=== PATIENT | female | born 1945 | race Caucasian/White ===

== ENCOUNTER 2017-06-30 11:42 | Inpatient (IN) | payer MEDICAID ==
--- NOTE | 2017-06-30 11:59 | ED PDOC ---
Arrival/HPI - General Time Seen by Provider: 06/30/17 11:58 Historian: Patient - History of Present Illness Narrative History of Present Illness (Text): 06/30/17 11:59 A 71 year old female presents to the emergency department complaining of left knee pain after mechanical fall prior to arrival. Patient reports while walking she tripped on the curb and fell forward onto her left knee. Patient reports she is able to ambulate but with a small limp. Patient denies any loss of consciousness, head trauma, headache, dizziness, visual changes, neck pain, nausea, vomiting, abdominal pain, back pain, chest pain, shortness of breath, weakness, numbness or any other complaints. Time/Duration: Prior to Arrival Symptom Course: Unchanged Quality: Other Context: Walking Past Medical History - Provider Review Nursing Documentation Reviewed: Yes Family/Social History - Physician Review Nursing Documentation Reviewed: Yes Family/Social History: No Known Family HX Allergies/Home Meds Allergies/Adverse Reactions: Allergies No Known Allergies Allergy (Unverified 06/30/17 11:58) Home Medications: Home Meds Medication Instructions Recorded Confirmed No Known Home Med 06/30/17 06/30/17 Review of Systems - Physician Review All systems were reviewed & negative as marked: Yes - Review of Systems Eyes: absent: Vision Changes Respiratory: absent: SOB Cardiovascular: absent: Chest Pain Gastrointestinal: absent: Abdominal Pain, Nausea, Vomiting Musculoskeletal: Other (Left knee pain). absent: Back Pain, Neck Pain Neurological: absent: Headache, Dizziness, Focal Weakness Physical Exam Vital Signs Reviewed: Yes Vital Signs Temp Pulse Resp BP Pulse Ox 06/30/17 14:23 77 18 150/79 96 06/30/17 11:59 98.1 F 87 18 162/77 H 99 Temperature: Afebrile Blood Pressure: Hypertensive Pulse: Regular Respiratory Rate: Normal Appearance: Positive for: Well-Appearing, Non-Toxic, Comfortable Pain Distress: None Mental Status: Positive for: Alert and Oriented X 3 - Systems Exam Head: Present: Atraumatic, Normocephalic Pupils: Present: PERRL Extroacular Muscles: Present: EOMI Conjunctiva: Present: Normal Mouth: Present: Moist Mucous Membranes Pharnyx: No: ERYTHEMA, EXUDATE, TONSILS ENLARGED Neck: Present: Normal Range of Motion Respiratory/Chest: Present: Clear to Auscultation, Good Air Exchange. No: Respiratory Distress, Accessory Muscle Use Cardiovascular: Present: Regular Rate and Rhythm, Normal S1, S2. No: Murmurs Abdomen: Present: Normal Bowel Sounds. No: Tenderness, Distention, Peritoneal Signs Back: Present: Normal Inspection Upper Extremity: Present: Normal Inspection, Normal ROM, NORMAL PULSES. No: Cyanosis, Edema, Tenderness Lower Extremity: Present: NORMAL PULSES (Normal distal pulses), Normal ROM ( Left knee held in extension, pain with flexion), Swelling (Left knee swelling), Neurovascularly Intact, Other (Left knee ecchymosis). No: Edema, CALF TENDERNESS, Tenderness (bony hip tenderness), Deformity, Temperature Abnormalties Neurological: Present: GCS=15, CN II-XII Intact, Speech Normal, Gait Normal ( with limp) Skin: Present: Warm, Dry, Normal Color. No: Rashes Psychiatric: Present: Alert, Oriented x 3, Normal Insight, Normal Concentration Medical Decision Making ED Course and Treatment: 06/30/17 12:28 Impression: A 71 year old female with left knee pain after mechanical fall prior to arrival. Plan: -- Left knee xray -- Oxycodone -- Reassess and disposition Progress Notes: 06/30/17 13:05 Left knee xray read and interpreted by me, which shows patellar fracture with large separation. Case discussed with Dr. Ma, who states he will be on consult and requests pre-op clearance by medicine. Dr. Yuan unable to admit currently, will admit patient to hospitalist. - RAD Interpretation Radiology Orders: 06/30/17 11:58 KNEE LEFT 2 VIEWS (AP & LAT) [RAD] Stat - Medication Orders Current Medication Orders: Acetaminophen (Tylenol 325mg Tab) 650 mg PO Q6H PRN PRN Reason: Pain, moderate (4-7) Morphine Sulfate (Morphine) 2 mg IVP Q4H PRN PRN Reason: Pain, severe (8-10) Pantoprazole Sodium (Protonix Inj) 40 mg IVP DAILY ANTHONY Discontinued Medications Oxycodone/Acetaminophen (Percocet 5/325 Mg Tab) 1 tab PO STAT STA Stop: 06/30/17 12:01 Last Admin: 06/30/17 12:36 Dose: 1 tab - Scribe Statement The provider has reviewed the documentation as recorded by the Scribe Halima Salgado Provider Scribe Attestation: All medical record entries made by the Scribe were at my direction and personally dictated by me. I have reviewed the chart and agree that the record accurately reflects my personal performance of the history, physical exam, medical decision making, and the department course for this patient. I have also personally directed, reviewed, and agree with the discharge instructions and disposition. Disposition/Present on Arrival - Present on Arrival Any Indicators Present on Arrival: No - Disposition Have Diagnosis and Disposition been Completed?: Yes Diagnosis: Patellar fracture Disposition: HOSPITALIZED Disposition Time: 13:05 Patient Plan: Admission Condition: FAIR
[2017-06-30] MEDS ORDERED: Oxycodone/Acetaminophen 5/325 mg Tab PO STA (12:00)
--- NOTE | 2017-06-30 15:47 | RAD ---
PROCEDURE: Left Knee Radiographs. HISTORY: Pain. COMPARISON: None. FINDINGS: BONES: A midpole patellar fracture with 1.6 cm operation of the fractured ends proximal patellar fracture an old unopposed by the quadriceps tendon. JOINTS: Mild osteoarthritis. JOINT EFFUSION: Present OTHER FINDINGS: Marked prepatellar soft tissue swelling IMPRESSION: Midpole patellar fracture 1.6 cm separation of the fracture fragments
--- NOTE | 2017-06-30 16:52 | CARD ---
APPROVED REPORT EXAM: Two-dimensional and M-mode echocardiogram with Doppler and color Doppler. INDICATION SURGICAL CLEARANCE 2D DIMENSIONS Left Atrium (2D)4.0 (1.6-4.0cm)IVSd1.2 (0.7-1.1cm) LVDd4.1 (3.9-5.9cm)PWd1.2 (0.7-1.1cm) LVDs2.5 (2.5-4.0cm)FS (%) 38.8 % LVEF (%)69.7 (>50%) M-Mode DIMENSIONS Aortic Root2.60 (2.2-3.7cm)Aortic Cusp Exc.1.60 (1.5-2.0cm) Aortic Valve AoV Peak Odenmqhb845.0cm/Cathleen Peak GR.9mmHg Mitral Valve MV E Lqaliypi15.6cm/sMV A Qtpgujka55.8cm/sE/A ratio0.9 TDI Lateral E' Peak V9.16cm/sMedial E' Peak V5.75cm/sE/Lateral E'7.8 E/Medial E'12.5 Pulmonary Valve PV Peak Pbauqfai60.0cm/sPV Peak Grad.2mmHg Tricuspid Valve TR Peak Voqhawuh568wz/sRAP KANOKZIJ45cfRkJE Peak Gr.31mmHg [id number] LEFT VENTRICLE The left ventricle is normal size. There is mild concentric left ventricular hypertrophy. The left ventricular function is normal. The left ventricular ejection fraction is within the normal range. There is normal LV segmental wall motion. Transmitral Doppler flow pattern is Grade I-abnormal relaxation pattern. RIGHT VENTRICLE The right ventricle is normal size. There is normal right ventricular wall thickness. The right ventricular systolic function is normal. ATRIA The left atrium is borderline dilated. The right atrium size is normal. AORTIC VALVE The aortic valve is normal in structure. No aortic regurgitation is present. MITRAL VALVE The mitral valve is mildly thickened. Mitral regurgitation is trace. TRICUSPID VALVE There is mild pulmonary hypertension. PULMONIC VALVE There is trace pulmonic valvular regurgitation. GREAT VESSELS The aortic root is normal in size. The IVC is normal in size and collapses >50% with inspiration. PERICARDIAL EFFUSION There is a trace loculated anterior pericardial effusion. <Conclusion> The left ventricle is normal size. There is mild concentric left ventricular hypertrophy. The left ventricular function is normal. The left ventricular ejection fraction is within the normal range. There is normal LV segmental wall motion. Transmitral Doppler flow pattern is Grade I-abnormal relaxation pattern. There is mild pulmonary hypertension.
[2017-06-30 18:09] LABS: BASO # 0.02 K/mm3 (0.0-2.0); BASO % 0.4 % (0.0-3.0); EOS # 0.1 (0.0-0.7); EOS % 1.2 % (1.5-5.0); GRAN # 2.82 (1.4-6.5); LYMPH # 1.8 (1.2-3.4); LYMPH % 36.6 % (22.0-35.0); MEAN CELL VOLUME 80.4 fl (80.0-105.0); MEAN CORPUSCULAR HEMOGLOBIN 26.3 pg (25.0-35.0); MEAN CORPUSCULAR HGB CONC 32.7 g/dl (31.0-37.0); MEAN PLATELET VOLUME 9.7 fl (7.0-11.0); MONO # 0.3 (0.1-0.6); MONO % 5.8 % (1.0-6.0); RED CELL DISTRIBUTION WIDTH 13.8 % (11.5-14.5)
[2017-06-30 18:16] LABS: INR 1.04 (0.93-1.08)
[2017-06-30 18:17] LABS: ALB/GLOB RATIO 1.5 (1.1-1.8); ALKALINE PHOSPHATASE 66 U/L (38-133); ALT/SGPT 28 U/L (7-56); AST/SGOT 21 U/L (15-39); BILIRUBIN,TOTAL 0.3 mg/dL (0.2-1.3); BLOOD UREA NITROGEN 14 mg/dL (7-21); CARBON DIOXIDE 26 mmol/L (21-33); CHLORIDE 106 mmol/L (98-107); GFR AFRICAN-AMERICAN > 60; GLUCOSE,RANDOM 144 mg/dL (70-110); SODIUM 142 mmol/L (132-148); TOTAL PROTEIN 6.8 g/dL (5.8-8.3)
[2017-06-30] MEDS: Morphine 2 mg/ml ISec IVP PRN ×2 (18:29→22:54)
[2017-06-30 19:02] VITALS: BMI 29.0
[2017-06-30] MEDS ORDERED: Pneumococcal 23-Valent Vaccine IM ONE (19:03)
--- NOTE | 2017-06-30 19:07 | CARD ---
APPROVED REPORT EKG Measurement Heart [id number] <Conclusion> Normal sinus rhythm Normal ECG
[2017-06-30 20:28] LABS: URINE BILIRUBIN NEGATIVE (NEGATIVE); URINE BLOOD TRACE-LYSED (NEGATIVE); URINE GLUCOSE (UA) NEGATIVE (NEGATIVE); URINE KETONE NEGATIVE (NEGATIVE); URINE LEUKOCYTE ESTERASE NEGATIVE Leu/uL (NEGATIVE); URINE PROTEIN NEGATIVE mg/dL (<30 mg/dL); URINE UROBILINOGEN 0.2 E.U./dL (<1 E.U./dL)
[2017-06-30 20:42] LABS: URINE APPEARANCE CLEAR (CLEAR); URINE COLOR YELLOW (YELLOW)
[2017-06-30 21:08] LABS: URINE BACTERIA FEW (NEG); URINE RBC 0 - 2 /hpf (0-2)
--- NOTE | 2017-06-30 21:18 | CP.PCM.HP ---
History of Present Illness - History of Present Illness History of Present Illness: CC: Left Knee Pain HPI: Mrs. Story is a 71 year old Lao female with no known medical history who [place] [facility] [place] after suffering a witnessed mechanical fall at 1100 on 06/30. Daughter at bedside provided translation as patient speaks primarily thai. also present at bedside. Per , patient tripped after striking her left ankle against a platform and fell onto both knees as she was unable to grab onto anything to slow her fall. There was no loss consciousness, syncope, weakness, urinary or fecal incontinence, or any other symptoms. Patient was unable to get up and an ambulance was called. Per the he was able to note an indentation in the middle of the knee right after the fall. Patient denies any other issues at this time. A left knee x-ray was obtained in the ED and revealed a broken left patella. She denies any vertigo, LOC, headache, fever, chills, weight loss, changes in her vision, shortness of breath, cough, chest pain, palpitations, abdominal pain , N/V, diarrhea, or constipation. PMH: Osteoporosis PSH: None Family: Sister-Breast Cancer Social: Denies tobacco, alcohol or illicit drug use Allergies: NKDA Home Medications: As per JAN PMD: Dr. Yuan Present on Admission - Present on Admission Any Indicators Present on Admission: No Review of Systems - Review of Systems Review of Systems: Please refer to [facility] Past Patient History - Past Social History Smoking Status: Never Smoked - CARDIAC Hx Hypercholesterolemia: Yes - NEUROLOGICAL Hx Neurological Disorder: Yes (neuropathy, b/l leg pain) Other/Comment: 3 weeks ago pt was getting oob put her feet to floor experienced what felt like electric shock to leg and couldn't walk dr started pt on ropinirole 0.25 mg po daily - ENDOCRINE/METABOLIC Hx Diabetes Mellitus Type 2: Yes - MUSCULOSKELETAL/RHEUMATOLOGICAL Hx Arthritis: Yes (back) Hx Falls: Yes (fell today) Hx Osteoporosis: Yes Hx Unsteady Gait: Yes - PSYCHIATRIC Hx Substance Use: No - SURGICAL HISTORY Hx Surgeries: No - ANESTHESIA Hx Anesthesia: No Meds Allergies/Adverse Reactions: Allergies Allergy/AdvReac Type Severity Reaction Status Date / Time No Known Allergies Allergy Unverified 06/30/17 11:58 Physical Exam - Constitutional Appears: Non-toxic, No Acute Distress - Head Exam Head Exam: ATRAUMATIC, NORMOCEPHALIC - Eye Exam Eye Exam: EOMI, Normal appearance, PERRL - ENT Exam ENT Exam: Mucous Membranes Moist, Normal Exam, Normal Oropharynx - Neck Exam Neck exam: Positive for: Full Rom, Normal Inspection. Negative for: Lymphadenopathy, Tenderness - Respiratory Exam Respiratory Exam: Clear to Auscultation Bilateral, NORMAL BREATHING PATTERN. absent: Prolonged Expiratory Phase, Rales, Rhonchi, Wheezes - Cardiovascular Exam Cardiovascular Exam: REGULAR RHYTHM, RRR, +S1, +S2. absent: Tachycardia, Systolic Murmur - GI/Abdominal Exam GI & Abdominal Exam: Normal Bowel Sounds, Soft. absent: Distended, Firm, Guarding, Tenderness - Exam Exam: absent: Bladder Distension - Extremities Exam Extremities exam: Positive for: joint swelling, normal capillary refill, tenderness, pedal pulses present. Negative for: calf tenderness, full ROM, normal inspection, pedal edema Additional comments: L knee edematous, TTP with limited ROM of LLE at the knee joint - Back Exam Back exam: absent: CVA tenderness (L), CVA tenderness (R), paraspinal tenderness , vertebral tenderness - Neurological Exam Neurological exam: Alert, Oriented x3 - Psychiatric Exam Psychiatric exam: Normal Affect, Normal Mood - Skin Skin Exam: Dry, Intact, Normal Color, Warm Results - Vital Signs Recent Vital Signs: Last Vital Signs Temp 98.1 F 06/30/17 18:37 Pulse 77 06/30/17 18:37 Resp 18 06/30/17 18:37 BP 150/79 06/30/17 18:37 Pulse Ox 96 06/30/17 14:23 - Labs Result Diagrams: 06/30/17 17:50 06/30/17 17:50 Labs: Laboratory Results - last 24 hr 06/30/17 06/30/17 06/30/17 17:50 17:50 17:50 WBC 5.0 RBC 4.60 Hgb 12.1 Hct 37.0 MCV 80.4 MCH 26.3 MCHC 32.7 RDW 13.8 Plt Count 173 MPV 9.7 Gran % 56.0 Lymph % (Auto) 36.6 H [place] % (Auto) 5.8 Eos % (Auto) 1.2 L Baso % (Auto) 0.4 Gran # 2.82 Lymph # 1.8 [place] # 0.3 Eos # 0.1 Baso # 0.02 PT 11.2 INR 1.04 Sodium 142 Potassium 4.0 Chloride 106 Carbon Dioxide 26 Anion Gap 14 BUN 14 Creatinine 0.5 Est GFR ( Amer) > 60 Est GFR (Non-Af Amer) > 60 Random Glucose 144 H Calcium 9.0 Total Bilirubin 0.3 AST 21 ALT 28 Alkaline Phosphatase 66 Total Protein 6.8 Albumin 4.1 Globulin 2.7 Albumin/Globulin Ratio 1.5 Urine Color Urine Appearance Urine pH Ur Specific [place] Urine Protein Urine Glucose (UA) Urine Ketones Urine Blood Urine Nitrate Urine Bilirubin Urine Urobilinogen Ur Leukocyte Esterase Urine RBC Urine WBC Ur Epithelial Cells Urine Bacteria 06/30/17 19:00 WBC RBC Hgb Hct MCV MCH MCHC RDW Plt Count MPV Gran % Lymph % (Auto) [place] % (Auto) Eos % (Auto) Baso % (Auto) Gran # Lymph # [place] # Eos # Baso # PT INR Sodium Potassium Chloride Carbon Dioxide Anion Gap BUN Creatinine Est GFR ( Amer) Est GFR (Non-Af Amer) Random Glucose Calcium Total Bilirubin AST ALT Alkaline Phosphatase Total Protein Albumin Globulin Albumin/Globulin Ratio Urine Color Yellow Urine Appearance Clear Urine pH 7.0 Ur Specific [place] 1.020 Urine Protein Negative Urine Glucose (UA) Negative Urine Ketones Negative Urine Blood Trace-lysed H Urine Nitrate Negative Urine Bilirubin Negative Urine Urobilinogen 0.2 Ur Leukocyte Esterase Negative Urine RBC 0 - 2 Urine WBC 2 - 5 Ur Epithelial Cells 1 - 3 Urine Bacteria Few - EKG Data EKG Interpreted by: Myself EKG shows normal: Sinus rhythm Rate: Normal - EKG Data When Compared to Previous EKG: No Significant Change Assessment & Plan - Assessment and Plan (Free Text) Assessment: 71 year old Lao female with no known medical history who presented after suffering a witnessed mechanical fall and found to have a broken left patella Plan: 1. Fracture of Left Patella -Left Knee X-Ray revealed fracture of left patella -medical clearance being obtained should surgery be needed -ECHO and EKG both within normal limits -CBC and CMP within normal limits -Chest X-Ray read pending -Tylenol 650mg PO Q6H PRN for moderate pain -Morphine 2mg IVP Q4H PRN for severe pain -Ortho consulted, all recommendations appreciated -PT/OT evaluation and treatment -Heart Healthy Diet -Vital Signs Q8H 2. GI/DVT Prophylaxis -Protonix -scd's held in setting of fracture of LE and damián score of 1 Patient seen and case discussed in detail with attending, Dr. Daugherty. - Date & Time Date: 06/30/17 Time: 14:20 Decision To Admit - Pt Status Changed To: Hospital Disposition Of: Inpatient Admission - Admit Certification Admit to Inpatient:: After my assessment, the patient will require hospitalization for at least two midnights. This is because of the severity of symptoms shown, intensity of services needed, and/or the medical risk in this patient being treated as an outpatient. - . Bed Request Type: Med/Surg
[2017-07-01] MEDS: Morphine 2 mg/ml ISec IVP PRN ×2 (03:54→11:08)
--- NOTE | 2017-07-01 08:53 | CP.PCM.CON ---
History of Present Illness - History of Present Illness History of Present Illness: Consult note for Dr. Spann A 71 year old female patient with PMHx of osteoporosis was seen at bedside this morning concerning Left patella fracture. Patient's daughter is present by bedside and provided translation (Armenian). Patient states that she tripped and dropped on her knees on floor, injuring her left patella on 06/30/17. Patient complains of pain to left knee and denies of pain to any other areas of body. Surgical plan of Left patella open reduction and internal fixation was explained to the patient, patient's daughter and the son. Written consent is signed by the patient and the daughter. Also spoke with patient's son over the phone. Patient denies of any N/V/F/C or SOB today. Review of Systems - Constitutional Constitutional: As Per HPI Past Patient History - Past Social History Smoking Status: Never Smoked - CARDIAC Hx Hypercholesterolemia: Yes - NEUROLOGICAL Hx Neurological Disorder: Yes (neuropathy, b/l leg pain) Other/Comment: 3 weeks ago pt was getting oob put her feet to floor experienced what felt like electric shock to leg and couldn't walk dr started pt on ropinirole 0.25 mg po daily - ENDOCRINE/METABOLIC Hx Diabetes Mellitus Type 2: Yes - MUSCULOSKELETAL/RHEUMATOLOGICAL Hx Arthritis: Yes (back) Hx Falls: Yes (fell today) Hx Osteoporosis: Yes Hx Unsteady Gait: Yes - PSYCHIATRIC Hx Substance Use: No - SURGICAL HISTORY Hx Surgeries: No - ANESTHESIA Hx Anesthesia: No Meds Allergies/Adverse Reactions: Allergies Allergy/AdvReac Type Severity Reaction Status Date / Time No Known Allergies Allergy Unverified 06/30/17 11:58 - Medications Medications: Current Medications Acetaminophen (Tylenol 325mg Tab) 650 mg PO Q6H PRN PRN Reason: Pain, moderate (4-7) Morphine Sulfate (Morphine) 2 mg IVP Q4H PRN PRN Reason: Pain, severe (8-10) Last Admin: 07/01/17 03:54 Dose: 2 mg Pantoprazole Sodium (Protonix Inj) 40 mg IVP DAILY ANTHONY Last Admin: 06/30/17 16:00 Dose: 40 mg Physical Exam - Constitutional Appears: Well, Non-toxic, No Acute Distress - Head Exam Head Exam: ATRAUMATIC - Eye Exam Eye Exam: Normal appearance, PERRL - ENT Exam ENT Exam: Normal Exam - Neck Exam Neck exam: Positive for: Normal Inspection - Respiratory Exam Respiratory Exam: NORMAL BREATHING PATTERN. absent: Rales, Rhonchi, Wheezes - Cardiovascular Exam Cardiovascular Exam: REGULAR RHYTHM - GI/Abdominal Exam GI & Abdominal Exam: Normal Bowel Sounds, Soft - Rectal Exam Rectal Exam: Deferred - Extremities Exam Additional comments: Left lower extremity exam DERM: No open wound noted. Mild ecchymosis noted around left knee anterior aspect. Mild erythema is noted. No drainage, no sign of acute infection is noted. VASC: [employer] <3 seconds to all digits. Moderate swelling noted around left knee ORTHO: Pain on palpation to Left knee. Limited ROM secondary to guarding Results - Vital Signs Recent Vital Signs: Last Vital Signs Temp 98 F 07/01/17 08:00 Pulse 68 07/01/17 08:00 Resp 18 07/01/17 08:00 BP 149/84 07/01/17 08:00 Pulse Ox 95 07/01/17 08:00 - Labs Result Diagrams: 06/30/17 17:50 06/30/17 17:50 Labs: Laboratory Results - last 24 hr 06/30/17 06/30/17 06/30/17 17:50 17:50 17:50 WBC 5.0 RBC 4.60 Hgb 12.1 Hct 37.0 MCV 80.4 MCH 26.3 MCHC 32.7 RDW 13.8 Plt Count 173 MPV 9.7 Gran % 56.0 Lymph % (Auto) 36.6 H [place] % (Auto) 5.8 Eos % (Auto) 1.2 L Baso % (Auto) 0.4 Gran # 2.82 Lymph # 1.8 [place] # 0.3 Eos # 0.1 Baso # 0.02 PT 11.2 INR 1.04 Sodium 142 Potassium 4.0 Chloride 106 Carbon Dioxide 26 Anion Gap 14 BUN 14 Creatinine 0.5 Est GFR ( Amer) > 60 Est GFR (Non-Af Amer) > 60 Random Glucose 144 H Calcium 9.0 Total Bilirubin 0.3 AST 21 ALT 28 Alkaline Phosphatase 66 Total Protein 6.8 Albumin 4.1 Globulin 2.7 Albumin/Globulin Ratio 1.5 Urine Color Urine Appearance Urine pH Ur Specific [place] Urine Protein Urine Glucose (UA) Urine Ketones Urine Blood Urine Nitrate Urine Bilirubin Urine Urobilinogen Ur Leukocyte Esterase Urine RBC Urine WBC Ur Epithelial Cells Urine Bacteria 06/30/17 19:00 WBC RBC Hgb Hct MCV MCH MCHC RDW Plt Count MPV Gran % Lymph % (Auto) [place] % (Auto) Eos % (Auto) Baso % (Auto) Gran # Lymph # [place] # Eos # Baso # PT INR Sodium Potassium Chloride Carbon Dioxide Anion Gap BUN Creatinine Est GFR ( Amer) Est GFR (Non-Af Amer) Random Glucose Calcium Total Bilirubin AST ALT Alkaline Phosphatase Total Protein Albumin Globulin Albumin/Globulin Ratio Urine Color Yellow Urine Appearance Clear Urine pH 7.0 Ur Specific [place] 1.020 Urine Protein Negative Urine Glucose (UA) Negative Urine Ketones Negative Urine Blood Trace-lysed H Urine Nitrate Negative Urine Bilirubin Negative Urine Urobilinogen 0.2 Ur Leukocyte Esterase Negative Urine RBC 0 - 2 Urine WBC 2 - 5 Ur Epithelial Cells 1 - 3 Urine Bacteria Few Assessment & Plan - Assessment and Plan (Free Text) Assessment: 71 year old female patient present with Left patella fracture secondary to mechanical fall Plan: Patient examined and evaluated Discussed in detail with attending Dr. Ma chart, labs, vitals reviewed; No leukocytosis, afebrile Radiographs reviewed: Displaced, complete fracture of Left patella Patient to OR tomorrow (07/02) for ORIF of left patella by Dr. Ma Patient to be on NPO after midnight Patient was explained procedure and post-operative course No guarantees were made concerning outcomes of the surgery Patient understands all risks, benefits and complications of procedure Patient signed the consent after explanation of risks, benefits and possible complications Please provide medical clearance for surgery tomorrow
--- NOTE | 2017-07-01 09:46 | RAD ---
HISTORY: Surgical Clearance COMPARISON: No prior. TECHNIQUE: Chest PA and lateral FINDINGS: LUNGS: No active pulmonary disease. PLEURA: No significant pleural effusion identified. No pneumothorax apparent. CARDIOVASCULAR: Normal. OSSEOUS STRUCTURES: No significant abnormalities. VISUALIZED UPPER ABDOMEN: Normal. OTHER FINDINGS: None. IMPRESSION: No active disease.
[2017-07-01] MEDS: Enoxaparin 40 mg Syringe SC SCH (12:31)
[2017-07-01] MEDS: oxyCODONE 5 mg Immediate Release Tab PO PRN ×2 (14:05→21:48)
--- NOTE | 2017-07-01 14:23 | CP.PCM.PN ---
Subjective - Date & Time of Evaluation Date of Evaluation: 07/01/17 Time of Evaluation: 14:19 - Subjective Subjective: MEDICINE PROGRESS NOTE: Pt seen and assessed at bedside. Pt reports that her knee pain is causing her significant discomfort, despite swelling going down. She states that the morphine works moderately well for pain relief but that it causes her nausea. She reports being otherwise asymptomatic. Pt denies any headache, dizziness, changes in his vision, fever, chest pain, shortness of breath, cough, abdominal pain, N/V (without morphine), diarrhea, or any urinary symptoms. Objective - Vital Signs/Intake and Output Vital Signs (last 24 hours): Temp Pulse Resp BP Pulse Ox 97.7 F 68 18 162/72 H 99 07/01/17 13:24 07/01/17 08:00 07/01/17 13:24 07/01/17 13:24 07/01/17 13:24 Intake and Output: 07/01/17 07/01/17 06:59 18:59 Intake Total 600 Balance 600 - Medications Medications: Current Medications Acetaminophen (Tylenol 325mg Tab) 650 mg PO Q6H PRN PRN Reason: Pain, moderate (4-7) Chlorthalidone (Hygroton) 25 mg PO DAILY [facility] Last Admin: 07/01/17 12:31 Dose: 25 mg Enoxaparin Sodium (Lovenox) 40 mg SC DAILY [facility] PRN Reason: Protocol Last Admin: 07/01/17 12:31 Dose: 40 mg Morphine Sulfate (Morphine) 2 mg IVP Q4H PRN PRN Reason: Pain, severe (8-10) Last Admin: 07/01/17 11:08 Dose: 2 mg Ondansetron HCl (Zofran Inj) 4 mg IVP Q4H PRN PRN Reason: Nausea/Vomiting Oxycodone HCl (Oxycodone Immediate Release Tab) 5 mg PO Q4H PRN PRN Reason: Pain, severe (8-10) Last Admin: 07/01/17 14:05 Dose: 5 mg Pantoprazole Sodium (Protonix Inj) 40 mg IVP DAILY [facility] Last Admin: 07/01/17 11:09 Dose: 40 mg - Labs Labs: 06/30/17 17:50 06/30/17 17:50 PT 11.2 Seconds (9.9-11.8) 06/30/17 17:50 INR 1.04 (0.93-1.08) 06/30/17 17:50 - Constitutional Appears: Non-toxic, No Acute Distress - Head Exam Head Exam: ATRAUMATIC, NORMOCEPHALIC - Eye Exam Eye Exam: EOMI, Normal appearance, PERRL - ENT Exam ENT Exam: Mucous Membranes Moist, Normal Exam, Normal Oropharynx - Neck Exam Neck Exam: Full ROM, Normal Inspection. absent: Lymphadenopathy, Tenderness - Respiratory Exam Respiratory Exam: Clear to Ausculation Bilateral, NORMAL BREATHING PATTERN. absent: Rales, Rhonchi, Wheezes, Respiratory Distress - Cardiovascular Exam Cardiovascular Exam: REGULAR RHYTHM, RRR, +S1, +S2. absent: Tachycardia, Diastolic murmur, Murmur - GI/Abdominal Exam GI & Abdominal Exam: Soft, Normal Bowel Sounds. absent: Distended, Firm, Guarding, Tenderness - Exam Exam: absent: Bladder Distension - Extremities Exam Extremities Exam: Joint Swelling, Normal Capillary Refill. absent: Calf Tenderness, Normal Inspection, Pedal Edema Additional comments: L knee edematous, TTP with limited ROM of LLE at the knee joint - Back Exam Back Exam: absent: CVA tenderness (L), CVA tenderness (R), paraspinal tenderness , vertebral tenderness - Neurological Exam Neurological Exam: Alert, Awake, Oriented x3 - Psychiatric Exam Psychiatric exam: Normal Affect, Normal Mood - Skin Skin Exam: Dry, Intact, Normal Color, Warm Assessment and Plan - Assessment and Plan (Free Text) Assessment: 71 year old [place] female with no known medical history who presented after suffering a witnessed mechanical fall and found to have a broken left patella Plan: 1. Fracture of Left Patella -Left Knee X-Ray revealed fracture of left patella -patient to OR tomorrow (07/02) for ORIF of left patella by Dr. Ma -patient low to moderate risk candidate for moderate risk surgical procedure -patient signed the consent after explanation of risks, benefits and possible complications, per ortho -ECHO, EKG and Chest X-Ray without abnormalities -CBC and CMP within normal limits -Tylenol 650mg PO Q6H PRN for moderate pain -Morphine 2mg IVP Q4H PRN for severe pain -Oxycodone 5mg Q4H PRN for severe pain -Zofran 4mg IVP Q4H for N/V associated with -Ortho consulted, all recommendations appreciated -PT/OT evaluation and treatment post-ORIF -NPO past midnight -Vital Signs Q8H 2. Osteoporosis -continue weekly Fosomax and Vitamin D Supplementation 3. GI/DVT Prophylaxis -Protonix/Lovenox and SCD's Patient seen and case discussed in detail with attending, Dr. Daugherty.
[2017-07-02] MEDS: Dextrose 5%/0.45% NS 1,000 ML IV SCH (10:59)
--- NOTE | 2017-07-02 13:09 | CP.PCM.PN ---
<ANGÉLICA BLOCK - Last Filed: 07/02/17 13:06> Subjective - Date & Time of Evaluation Date of Evaluation: 07/02/17 Time of Evaluation: 13:07 - Subjective Subjective: MEDICINE PROGRESS NOTE: Pt seen and assessed at bedside. Pt reports that her knee pain has resolved somewhat but that it is not completely gone. Patient reports that she hasn't had a BM in 2 days, which is not normal for her. She reports being otherwise asymptomatic. Pt denies any headache, dizziness, changes in his vision, fever, chest pain, shortness of breath, cough, abdominal pain, N/V, diarrhea, or any urinary symptoms. Objective - Vital Signs/Intake and Output Vital Signs (last 24 hours): Temp Pulse Resp BP Pulse Ox 98.2 F 89 20 158/90 H 96 07/02/17 07:00 07/02/17 07:00 07/02/17 07:00 07/02/17 07:00 07/02/17 07:00 Intake and Output: 07/02/17 07/02/17 06:59 18:59 Intake Total 360 Balance 360 - Medications Medications: Current Medications Acetaminophen (Tylenol 325mg Tab) 650 mg PO Q6H PRN PRN Reason: Pain, moderate (4-7) Alendronate Sodium (Fosamax) [address] [facility] Chlorthalidone (Hygroton) [address] [facility] Last Admin: 07/02/17 10:56 Dose: 25 mg Enoxaparin Sodium (Lovenox) [address] [facility] PRN Reason: Protocol Last Admin: 07/01/17 12:31 Dose: 40 mg Ergocalciferol (Drisdol 50,000 Intl Units Cap) [address] [facility] Folic Acid (Folic Acid) [address] [facility] Last Admin: 07/02/17 10:55 Dose: Not Given Dextrose/Sodium Chloride (Dextrose 5%/0.45% Ns 1000 Ml) 1,000 mls @ 120 mls/hr IV .Q8H20M [facility] Last Admin: 07/02/17 10:59 Dose: 120 mls/hr Morphine Sulfate (Morphine) 2 mg IVP Q4H PRN PRN Reason: Pain, severe (8-10) Last Admin: 07/01/17 11:08 Dose: 2 mg Ondansetron HCl (Zofran Inj) 4 mg IVP Q4H PRN PRN Reason: Nausea/Vomiting Oxycodone HCl (Oxycodone Immediate Release Tab) 5 mg PO Q4H PRN PRN Reason: Pain, severe (8-10) Last Admin: 07/01/17 21:48 Dose: 5 mg Pantoprazole Sodium (Protonix Inj) 40 mg IVP DAILY [facility] Last Admin: 07/02/17 10:56 Dose: 40 mg - Labs Labs: 06/30/17 17:50 06/30/17 17:50 PT 11.2 Seconds (9.9-11.8) 06/30/17 17:50 INR 1.04 (0.93-1.08) 06/30/17 17:50 - Constitutional Appears: Non-toxic, No Acute Distress - Head Exam Head Exam: ATRAUMATIC, NORMOCEPHALIC - Eye Exam Eye Exam: EOMI, Normal appearance, PERRL - ENT Exam ENT Exam: Mucous Membranes Moist, Normal Exam, Normal Oropharynx - Neck Exam Neck Exam: Full ROM, Normal Inspection. absent: Lymphadenopathy, Tenderness - Respiratory Exam Respiratory Exam: Clear to Ausculation Bilateral, NORMAL BREATHING PATTERN. absent: Rales, Rhonchi, Wheezes, Respiratory Distress, Stridor - Cardiovascular Exam Cardiovascular Exam: REGULAR RHYTHM, RRR, +S1, +S2. absent: Tachycardia, Murmur - GI/Abdominal Exam GI & Abdominal Exam: Soft, Normal Bowel Sounds. absent: Distended, Firm, Guarding, Tenderness - Exam Exam: absent: Bladder Distension - Extremities Exam Extremities Exam: Calf Tenderness, Joint Swelling, Normal Capillary Refill. absent: Normal Inspection, Pedal Edema Additional comments: L knee edematous with overlying bruising, TTP with limited ROM of LLE at the knee joint - Back Exam Back Exam: NORMAL INSPECTION. absent: CVA tenderness (L), CVA tenderness (R), paraspinal tenderness, vertebral tenderness - Neurological Exam Neurological Exam: Alert, Awake, Oriented x3 - Psychiatric Exam Psychiatric exam: Normal Affect, Normal Mood - Skin Skin Exam: Dry, Intact, Normal Color, Warm Assessment and Plan - Assessment and Plan (Free Text) Assessment: 71 year old [place]yanese female with no known medical history who presented after suffering a witnessed mechanical fall and found to have a broken left patella Plan: 1. Fracture of Left Patella -patient to OR today (07/02) at 1730 for ORIF of left patella by Dr. Ma -Left Knee X-Ray revealed fracture of left patella -patient low to moderate risk candidate for moderate risk surgical procedure -patient signed the consent after explanation of risks, benefits and possible complications, per ortho -ECHO, EKG and Chest X-Ray without abnormalities -CBC and CMP within normal limits -Tylenol 650mg PO Q6H PRN for moderate pain -Morphine 2mg IVP Q4H PRN for severe pain -Oxycodone 5mg Q4H PRN for severe pain -Zofran 4mg IVP Q4H for N/V -started D5W for hydration in setting of pre-surgical NPO -Ortho consulted, all recommendations appreciated -PT/OT evaluation and treatment post-ORIF -NPO past midnight -Vital Signs Q8H -patient requesting [facility] placement for post-surgery rehabilitation as she lives in a third story apartment in a building without an elevator 2. Osteoporosis -continue weekly Fosomax and Vitamin D Supplementation 3. Constipation -will start miralax post ORIF on 07/02 4. HTN -continue chlorthalidone 25mg PO daily 5. GI/DVT Prophylaxis -Protonix/Lovenox and SCD's Patient seen and case discussed in detail with attending, Dr. Leroy Wolf. <Leroy Wolf - Last Filed: 07/02/17 17:57> Objective - Vital Signs/Intake and Output Vital Signs (last 24 hours): Temp Pulse Resp BP Pulse Ox 98.5 F 113 H 18 155/86 H 97 07/02/17 14:29 07/02/17 14:29 07/02/17 14:29 07/02/17 14:29 07/02/17 14:29 Intake and Output: 07/02/17 07/02/17 06:59 18:59 Intake Total 360 0 Balance 360 0 - Medications Medications: Current Medications Acetaminophen (Tylenol 325mg Tab) 650 mg PO Q6H PRN PRN Reason: Pain, moderate (4-7) Alendronate Sodium (Fosamax) [address] [facility] Chlorthalidone (Hygroton) [address] [facility] Last Admin: 07/02/17 10:56 Dose: 25 mg Enoxaparin Sodium (Lovenox) [address] [facility] PRN Reason: Protocol Last Admin: 07/01/17 12:31 Dose: 40 mg Ergocalciferol (Drisdol 50,000 Intl Units Cap) [address] [facility] Folic Acid (Folic Acid) [address] [facility] Last Admin: 07/02/17 10:55 Dose: Not Given Dextrose/Sodium Chloride (Dextrose 5%/0.45% Ns 1000 Ml) 1,000 mls @ 120 mls/hr IV .Q8H20M [facility] Last Admin: 07/02/17 10:59 Dose: 120 mls/hr Morphine Sulfate (Morphine) 2 mg IVP Q4H PRN PRN Reason: Pain, severe (8-10) Last Admin: 07/01/17 11:08 Dose: 2 mg Ondansetron HCl (Zofran Inj) 4 mg IVP Q4H PRN PRN Reason: Nausea/Vomiting Oxycodone HCl (Oxycodone Immediate Release Tab) 5 mg PO Q4H PRN PRN Reason: Pain, severe (8-10) Last Admin: 07/01/17 21:48 Dose: 5 mg Pantoprazole Sodium (Protonix Inj) [address] [facility] Last Admin: 07/02/17 10:56 Dose: 40 mg - Labs Labs: 06/30/17 17:50 06/30/17 17:50 PT 11.2 Seconds (9.9-11.8) 06/30/17 17:50 INR 1.04 (0.93-1.08) 06/30/17 17:50 Attending/Attestation - Attestation I have personally seen and examined this patient.: Yes I have fully participated in the care of the patient.: Yes I have reviewed all pertinent clinical information, including history, physical exam and plan: Yes Notes (Text): I have seen and examined the patient at bedside. Agree with the above note with the following additions/ exceptions: Briefly this is 71 year old female with history of HTN who was found to have left patellar fracture s/p mechanical fall. Patient is scheduled foe OR today. Will continue to follow the patient. Upon discharge patient will follow up with Dr Yuan. Dr Leroy Wolf
[2017-07-02] MEDS ORDERED: Propofol 10 mg/ml Inj (20 ML) ONE ×2 (15:26→17:39)
[2017-07-02] MEDS ORDERED: Bupivacaine 0.5% Inj(30mL) ONE (16:39)
[2017-07-02] MEDS ORDERED: Neostigmine Methylsulfate 3mg/3ml Syringe IV ONE (16:40)
[2017-07-02] MEDS ORDERED: Esmolol 100 mg/10ml Inj IV ONE (16:58)
--- NOTE | 2017-07-02 17:41 | PCM.SURG1 ---
Surgeon's Initial Post Op Note - Surgeon's Notes Surgeon: Dr. Spann Django Developer: Dr. Mehul Mohan Type of Anesthesia: General IV, Block Regional Anesthesia Administered By: Dr. Lopez, Dr. Hopkins Pre-Operative Diagnosis: Left patella fracture Operative Findings: Materials used: Tension bending wire, 2-0 Vicryl, 3-0 Vicryl , Skin matthieu Post-Operative Diagnosis: Same Operation Performed: Left patella ORIF Specimen/Specimens Removed: None Estimated Blood Loss: EBL {In ML}: 25 Blood Products Given: N/A Drains Used: No Drains Post-Op Condition: Good Date of Surgery/Procedure: 07/02/17 Time of Surgery/Procedure: 04:00
[2017-07-02] MEDS ORDERED: Lactated Ringer's 1,000 ML IV SCH (18:11)
[2017-07-02] MEDS ORDERED: HYDROmorphone 0.5 mg/0.5 ml ISec IVP PRN (18:11)
[2017-07-02] MEDS ORDERED: HYDROmorphone 0.5 mg/0.5 ml ISec ONE ×3 (18:29→18:58)
[2017-07-02] MEDS ORDERED: HYDROmorphone 0.5 mg/0.5 ml ISec IVP ONE ×3 (18:33→19:00)
[2017-07-03] MEDS: Morphine 2 mg/ml ISec IVP PRN (05:37)
[2017-07-03] MEDS: Dextrose 5%/0.45% NS 1,000 ML IV SCH (05:41)
[2017-07-03 08:21] VITALS: RESP 20
--- NOTE | 2017-07-03 08:26 | RAD ---
PROCEDURE: Left knee two views portable HISTORY: Left knee surgery COMPARISON: 06/30/2017 TECHNIQUE: Two views portable FINDINGS: There has been internal fixation of the displaced patellar fracture. 2 screws and wires are seen. There is anatomic alignment. IMPRESSION: As above
[2017-07-03] MEDS: Enoxaparin 40 mg Syringe SC SCH (09:15)
[2017-07-03] MEDS: oxyCODONE 5 mg Immediate Release Tab PO PRN ×2 (09:17→17:12)
--- NOTE | 2017-07-03 10:33 | RAD ---
PROCEDURE: Fluoroscopy up to 1 hour HISTORY: O.R.I.F. LEFT PATELLA COMPARISON: TECHNIQUE: Fluoroscopy was provided in the operating room. 20 seconds of fluoro time. Five images were submitted FINDINGS: Study shows placement of 2 screws and wires through the patellar fracture. There is normal alignment IMPRESSION: As above
--- NOTE | 2017-07-03 12:45 | CP.PCM.PN ---
Subjective - Date & Time of Evaluation Date of Evaluation: 07/03/17 Time of Evaluation: 12:42 - Subjective Subjective: Progress note for Dr. Spann A 71 year old female patient 1 day s/p Left patella ORIF was seen at bedside this morning. Dressing to left lower extremity is clean dry and intact. Patient admits to moderate pain to left knee but tolerable with medications. She reports no acute distress. Spoke with son over the phone. Advised patient o keep legs straight. Patient's son was advised that there are two screws and two wires fixating the patella. Patient denies of any N/V/F/C or SOB today. Objective - Vital Signs/Intake and Output Vital Signs (last 24 hours): Temp Pulse Resp BP Pulse Ox 98.3 F 97 H 20 127/73 94 L 07/03/17 08:20 07/03/17 08:20 07/03/17 08:20 07/03/17 08:20 07/03/17 08:20 Intake and Output: 07/03/17 07/03/17 06:59 18:59 Intake Total 60 Balance 60 - Medications Medications: Current Medications Acetaminophen (Tylenol 325mg Tab) 650 mg PO Q6H PRN PRN Reason: Pain, moderate (4-7) Alendronate Sodium (Fosamax) 70 mg PO QWK [facility] Chlorthalidone (Hygroton) 25 mg PO DAILY [facility] Last Admin: 07/03/17 09:15 Dose: 25 mg Docusate Sodium (Colace) 100 mg PO BID [facility] Enoxaparin Sodium (Lovenox) 40 mg SC DAILY [facility] PRN Reason: Protocol Last Admin: 07/03/17 09:15 Dose: 40 mg Ergocalciferol (Drisdol 50,000 Intl Units Cap) 1 cap PO QWK [facility] Folic Acid (Folic Acid) 1 mg PO DAILY [facility] Last Admin: 07/03/17 09:15 Dose: 1 mg Dextrose/Sodium Chloride (Dextrose 5%/0.45% Ns 1000 Ml) 1,000 mls @ 120 mls/hr IV .Q8H20M [facility] Last Admin: 07/03/17 05:41 Dose: 120 mls/hr Morphine Sulfate (Morphine) 2 mg IVP Q4H PRN PRN Reason: Pain, severe (8-10) Last Admin: 07/03/17 05:37 Dose: 2 mg Ondansetron HCl (Zofran Inj) 4 mg IVP Q4H PRN PRN Reason: Nausea/Vomiting Last Admin: 07/03/17 11:49 Dose: 4 mg Oxycodone HCl (Oxycodone Immediate Release Tab) 5 mg PO Q4H PRN PRN Reason: Pain, severe (8-10) Last Admin: 07/03/17 09:17 Dose: 5 mg Pantoprazole Sodium (Protonix Inj) 40 mg IVP DAILY [facility] Last Admin: 07/03/17 09:15 Dose: 40 mg - Labs Labs: 06/30/17 17:50 06/30/17 17:50 PT 11.2 Seconds (9.9-11.8) 06/30/17 17:50 INR 1.04 (0.93-1.08) 06/30/17 17:50 - Constitutional Appears: Well, Non-toxic, No Acute Distress - Extremities Exam Additional comments: Left lower extremity exam DERM: No wound dehiscence noted. No drainage is noted. No purulent discharge noted. All matthieu intact. No macerations noted to wound edges. No sign of acute infection is noted. Erythema noted around the wound less than 1 cm in margin VASC: [employer] <3 seconds to all digits. Moderate swelling noted around left knee ORTHO: To keep knees straight with immobilizer - Neurological Exam Neurological Exam: Alert, Awake, Oriented x3 - Psychiatric Exam Psychiatric exam: Normal Affect, Normal Mood - Skin Skin Exam: Normal Color, Warm Assessment and Plan - Assessment and Plan (Free Text) Assessment: 71 year old female patient 1 day s/p Left patella ORIF Plan: Patient examined and evaluated Chart, labs, vitals reviewed; afebrile Wound examined, no sign of dehiscence/infection Continue Anti-coag, Pain medication Patient to be trained for weight bearing as tolerated by Physical therapy Patient will follow up with Dr. Spann upon discharge
[2017-07-03 16:34] LABS: BASO # 0.01 K/mm3 (0.0-2.0); BASO % 0.1 % (0.0-3.0); EOS % 0.1 % (1.5-5.0); GRAN # 5.9 (1.4-6.5); GRAN % 70.3 % (50.0-68.0); HEMATOCRIT 36.8 % (36.0-48.0); LYMPH # 1.6 (1.2-3.4); LYMPH % 19.5 % (22.0-35.0); MEAN CELL VOLUME 79.3 fl (80.0-105.0); MEAN CORPUSCULAR HEMOGLOBIN 26.7 pg (25.0-35.0); MEAN CORPUSCULAR HGB CONC 33.7 g/dl (31.0-37.0); MEAN PLATELET VOLUME 10.5 fl (7.0-11.0); MONO # 0.8 (0.1-0.6); WHITE BLOOD COUNT 8.4 10^3/ul (4.5-11.0)
[2017-07-03 16:44] LABS: ALB/GLOB RATIO 1.4 (1.1-1.8); ALKALINE PHOSPHATASE 60 U/L (38-133); ALT/SGPT 28 U/L (7-56); AST/SGOT 20 U/L (15-39); BILIRUBIN,TOTAL 0.9 mg/dL (0.2-1.3); BLOOD UREA NITROGEN 14 mg/dL (7-21); CALCIUM 9.2 mg/dL (8.4-10.5); CARBON DIOXIDE 29 mmol/L (21-33); CHLORIDE 97 mmol/L (98-107); GFR AFRICAN-AMERICAN > 60; GLUCOSE,RANDOM 121 mg/dL (70-110); POTASSIUM 3.7 mmol/L (3.6-5.0); SODIUM 138 mmol/L (132-148); TOTAL PROTEIN 7.1 g/dL (5.8-8.3)
[2017-07-03 17:03] VITALS: BP 123/74; PULSE 98; TEMP 99.5; O2SAT 95
--- NOTE | 2017-07-05 21:33 | CP.PCM.DIS ---
<ANGÉLICA BLOCK - Last Filed: 07/05/17 21:25> Provider - Provider Date of Admission: 06/30/17 13:15 Attending physician: Leroy Wolf MD Primary care physician: Monty Yuan MD Consults: Ortho: Yuri Time Spent in preparation of Discharge (in minutes): 51 Hospital Course - Lab Results Lab Results: Most Recent Lab Values WBC 8.4 10^3/ul (4.5-11.0) D 07/03/17 16:28 RBC 4.64 10^6/uL (3.5-6.1) 07/03/17 16:28 Hgb 12.4 g/dL (12.0-16.0) 07/03/17 16:28 Hct 36.8 % (36.0-48.0) 07/03/17 16:28 MCV 79.3 fl (80.0-105.0) L 07/03/17 16:28 MCH 26.7 pg (25.0-35.0) 07/03/17 16:28 MCHC 33.7 g/dl (31.0-37.0) 07/03/17 16:28 RDW 14.0 % (11.5-14.5) 07/03/17 16:28 Plt Count 194 10^3/uL (120.0-450.0) 07/03/17 16:28 MPV 10.5 fl (7.0-11.0) 07/03/17 16:28 Gran % 70.3 % (50.0-68.0) H 07/03/17 16:28 Lymph % (Auto) 19.5 % (22.0-35.0) L 07/03/17 16:28 Ripley % (Auto) 10.0 % (1.0-6.0) H 07/03/17 16:28 Eos % (Auto) 0.1 % (1.5-5.0) L 07/03/17 16:28 Baso % (Auto) 0.1 % (0.0-3.0) 07/03/17 16:28 Gran # 5.90 (1.4-6.5) 07/03/17 16:28 Lymph # 1.6 (1.2-3.4) 07/03/17 16:28 Ripley # 0.8 (0.1-0.6) H 07/03/17 16:28 Eos # 0.0 (0.0-0.7) 07/03/17 16:28 Baso # 0.01 K/mm3 (0.0-2.0) 07/03/17 16:28 PT 11.2 Seconds (9.9-11.8) 06/30/17 17:50 INR 1.04 (0.93-1.08) 06/30/17 17:50 Sodium 138 mmol/L (132-148) 07/03/17 16:28 Potassium 3.7 mmol/L (3.6-5.0) 07/03/17 16:28 Chloride 97 mmol/L (98-107) L 07/03/17 16:28 Carbon Dioxide 29 mmol/L (21-33) 07/03/17 16:28 Anion Gap 16 (10-20) 07/03/17 16:28 BUN 14 mg/dL (7-21) 07/03/17 16:28 Creatinine 0.8 mg/dL (0.5-1.4) 07/03/17 16:28 Est GFR ( Amer) > 60 07/03/17 16:28 Est GFR (Non-Af Amer) > 60 07/03/17 16:28 Random Glucose 121 mg/dL (70-110) H 07/03/17 16:28 Calcium 9.2 mg/dL (8.4-10.5) 07/03/17 16:28 Total Bilirubin 0.9 mg/dL (0.2-1.3) 07/03/17 16:28 AST 20 U/L (15-39) 07/03/17 16:28 ALT 28 U/L (7-56) 07/03/17 16:28 Alkaline Phosphatase 60 U/L (38-133) 07/03/17 16:28 Total Protein 7.1 g/dL (5.8-8.3) 07/03/17 16:28 Albumin 4.2 g/dL (3.0-4.8) 07/03/17 16:28 Globulin 2.9 gm/dL 07/03/17 16:28 Albumin/Globulin Ratio 1.4 (1.1-1.8) 07/03/17 16:28 Urine Color Yellow (YELLOW) 06/30/17 19:00 Urine Appearance Clear (CLEAR) 06/30/17 19:00 Urine pH 7.0 (4.7-8.0) 06/30/17 19:00 Ur Specific Stapleton 1.020 (1.005-1.035) 06/30/17 19:00 Urine Protein Negative mg/dL (<30 mg/dL) 06/30/17 19:00 Urine Glucose (UA) Negative mg/dL (NEGATIVE) 06/30/17 19:00 Urine Ketones Negative mg/dL (NEGATIVE) 06/30/17 19:00 Urine Blood Trace-lysed (NEGATIVE) H 06/30/17 19:00 Urine Nitrate Negative (NEGATIVE) 06/30/17 19:00 Urine Bilirubin Negative (NEGATIVE) 06/30/17 19:00 Urine Urobilinogen 0.2 E.U./dL (<1 E.U./dL) 06/30/17 19:00 Ur Leukocyte Esterase Negative Zenon/uL (NEGATIVE) 06/30/17 19:00 Urine RBC 0 - 2 /hpf (0-2) 06/30/17 19:00 Urine WBC 2 - 5 /hpf (0-6) 06/30/17 19:00 Ur Epithelial Cells 1 - 3 /hpf (0-5) 06/30/17 19:00 Urine Bacteria Few (NEG) 06/30/17 19:00 - Hospital Course Hospital Course: 71 year old [place] female with a past medical history of osteoporosis presented to the [facility] ED on after suffering a witnessed mechanical fall. A left knee x-ray was obtained in the ED and revealed a broken left patella. Ortho was consulted. Patient was started on morphine for pain control and her home medications were resumed. Ortho took patient to OR to perform ORIF of L patella at 1730 on 07/02. Patient expressed desire to be placed in [facility] for post surgical rehab. PT/OT recommended she be discharged to [facility]. Patient was then discharged to [facility] on 07/03. - Date & Time of H&P Date of H&P: 06/30/17 Time of H&P: 21:14 Discharge Exam - Head Exam Head Exam: ATRAUMATIC, NORMOCEPHALIC - Eye Exam Eye Exam: EOMI, Normal appearance, PERRL Pupil Exam: NORMAL ACCOMODATION - ENT Exam ENT Exam: Mucous Membranes Moist, Normal Exam - Neck Exam Neck exam: Full Rom - Respiratory Exam Respiratory Exam: NORMAL BREATHING PATTERN, UNREMARKABLE - Cardiovascular Exam Cardiovascular Exam: REGULAR RHYTHM, RRR, +S1, +S2 - GI/Abdominal Exam GI & Abdominal Exam: Normal Bowel Sounds, Soft, Unremarkable. absent: Tenderness - Exam Exam: absent: Bladder Distension - Extremities Exam Extremities exam: normal capillary refill, pedal pulses present Additional comments: Post surgical wound dressing on L patella clean dry and intact - Neurological Exam Neurological exam: Alert, Oriented x3 - Psychiatric Exam Psychiatric exam: Normal Affect, Normal Mood - Skin Skin Exam: Dry, Intact, Normal Color, Warm Discharge Plan - Follow Up Plan Condition: FAIR Disposition: HOME/ ROUTINE Instructions: Regular Diet (DC), Patellar Fracture (DC), Fall Prevention (DC) Additional Instructions: 1. Please follow up with Dr. Yuan within 1-2 weeks to discuss the medical conditions addressed during your admission to [facility]. 2. Please follow up with Dr. Welch within 1-2 weeks to discuss the results of your surgery (ORIF of L patella) 3. Please take all medications as prescribed 4. If your symptoms should worsen or persist, please seek medical attention. Referrals: Cornelio Spann MD [Staff Provider] - Monty Yuan MD [Primary Care Provider] - <Leroy Wolf - Last Filed: 07/06/17 14:08> Provider - Provider Date of Admission: 06/30/17 13:15 Attending physician: Leroy Wolf MD Primary care physician: Monty Yuan MD Hospital Course - Lab Results Lab Results: Most Recent Lab Values WBC 8.4 10^3/ul (4.5-11.0) D 07/03/17 16:28 RBC 4.64 10^6/uL (3.5-6.1) 07/03/17 16:28 Hgb 12.4 g/dL (12.0-16.0) 07/03/17 16:28 Hct 36.8 % (36.0-48.0) 07/03/17 16:28 MCV 79.3 fl (80.0-105.0) L 07/03/17 16:28 MCH 26.7 pg (25.0-35.0) 07/03/17 16:28 MCHC 33.7 g/dl (31.0-37.0) 07/03/17 16:28 RDW 14.0 % (11.5-14.5) 07/03/17 16:28 Plt Count 194 10^3/uL (120.0-450.0) 07/03/17 16:28 MPV 10.5 fl (7.0-11.0) 07/03/17 16:28 Gran % 70.3 % (50.0-68.0) H 07/03/17 16:28 Lymph % (Auto) 19.5 % (22.0-35.0) L 07/03/17 16:28 Ripley % (Auto) 10.0 % (1.0-6.0) H 07/03/17 16:28 Eos % (Auto) 0.1 % (1.5-5.0) L 07/03/17 16:28 Baso % (Auto) 0.1 % (0.0-3.0) 07/03/17 16:28 Gran # 5.90 (1.4-6.5) 07/03/17 16:28 Lymph # 1.6 (1.2-3.4) 07/03/17 16:28 Ripley # 0.8 (0.1-0.6) H 07/03/17 16:28 Eos # 0.0 (0.0-0.7) 07/03/17 16:28 Baso # 0.01 K/mm3 (0.0-2.0) 07/03/17 16:28 PT 11.2 Seconds (9.9-11.8) 06/30/17 17:50 INR 1.04 (0.93-1.08) 06/30/17 17:50 Sodium 138 mmol/L (132-148) 07/03/17 16:28 Potassium 3.7 mmol/L (3.6-5.0) 07/03/17 16:28 Chloride 97 mmol/L (98-107) L 07/03/17 16:28 Carbon Dioxide 29 mmol/L (21-33) 07/03/17 16:28 Anion Gap 16 (10-20) 07/03/17 16:28 BUN 14 mg/dL (7-21) 07/03/17 16:28 Creatinine 0.8 mg/dL (0.5-1.4) 07/03/17 16:28 Est GFR ( Amer) > 60 07/03/17 16:28 Est GFR (Non-Af Amer) > 60 07/03/17 16:28 Random Glucose 121 mg/dL (70-110) H 07/03/17 16:28 Calcium 9.2 mg/dL (8.4-10.5) 07/03/17 16:28 Total Bilirubin 0.9 mg/dL (0.2-1.3) 07/03/17 16:28 AST 20 U/L (15-39) 07/03/17 16:28 ALT 28 U/L (7-56) 07/03/17 16:28 Alkaline Phosphatase 60 U/L (38-133) 07/03/17 16:28 Total Protein 7.1 g/dL (5.8-8.3) 07/03/17 16:28 Albumin 4.2 g/dL (3.0-4.8) 07/03/17 16:28 Globulin 2.9 gm/dL 07/03/17 16:28 Albumin/Globulin Ratio 1.4 (1.1-1.8) 07/03/17 16:28 Urine Color Yellow (YELLOW) 06/30/17 19:00 Urine Appearance Clear (CLEAR) 06/30/17 19:00 Urine pH 7.0 (4.7-8.0) 06/30/17 19:00 Ur Specific Stapleton 1.020 (1.005-1.035) 06/30/17 19:00 Urine Protein Negative mg/dL (<30 mg/dL) 06/30/17 19:00 Urine Glucose (UA) Negative mg/dL (NEGATIVE) 06/30/17 19:00 Urine Ketones Negative mg/dL (NEGATIVE) 06/30/17 19:00 Urine Blood Trace-lysed (NEGATIVE) H 06/30/17 19:00 Urine Nitrate Negative (NEGATIVE) 06/30/17 19:00 Urine Bilirubin Negative (NEGATIVE) 06/30/17 19:00 Urine Urobilinogen 0.2 E.U./dL (<1 E.U./dL) 06/30/17 19:00 Ur Leukocyte Esterase Negative Zenon/uL (NEGATIVE) 06/30/17 19:00 Urine RBC 0 - 2 /hpf (0-2) 06/30/17 19:00 Urine WBC 2 - 5 /hpf (0-6) 06/30/17 19:00 Ur Epithelial Cells 1 - 3 /hpf (0-5) 06/30/17 19:00 Urine Bacteria Few (NEG) 06/30/17 19:00 Attending/Attestation - Attestation I have personally seen and examined this patient.: Yes I have fully participated in the care of the patient.: Yes I have reviewed all pertinent clinical information, including history, physical exam and plan: Yes Notes (Text): I have seen and examined the patient at bedside. Agree with the above note with the following additions/ exceptions: Briefly this is 71 year old female with history of HTN who was found to have left patellar fracture s/p mechanical fall. Patient underwent ORIF of left patella. Patient will be discharged to [facility] today. Will continue to follow the patient. Upon discharge patient will follow up with Dr Yuan. Dr Leroy Wolf
--- NOTE | 2017-07-07 08:33 | OP ---
PROCEDURE DATE: 07/02/2017 SURGEON: Cornelio Spann MD [facility] DIRECTOR: Abiodun Galvez, resident PREOPERATIVE DIAGNOSIS: Displaced left patellar fracture. POSTOPERATIVE DIAGNOSIS: Displaced left patellar fracture. SURGERY: Left patella open reduction and internal fixation with bilateral compression screws and tension wire. 36025 BLOOD LOSS: Minimal. SPECIMENS: None. COMPLICATIONS: None. DRAINS: None. DISPOSITION: Stable to recovery room. INDICATIONS: This is a 71-year-old female who tripped and fell on a sidewalk, raised platform, landing onto her left knee. The patient had immediate knee pain, swelling, and inability to raise her leg. She was brought to the emergency room at [facility] and diagnosed with patellar fracture. The patient underwent preoperative clearance and elected to undergo the above surgery. Surgery is indicated due to disability and displacement of the patellar fracture. Risks of surgery were explained to the patient and her family. Risks include, but are not limited to bleeding; infection; tendon, nerve, or vessel injury; instability; chronic pain; need for additional surgery in the future; malunion; and nonunion. The patient understood the above risks and elected to proceed. Informed consent was obtained. DESCRIPTION OF PROCEDURE: The patient was brought to the operating room and placed supine on the operating room table. After prophylactic antibiotics were given and general anesthesia, a non-sterile tourniquet was placed on the left thigh. The left leg was then elevated and prepped in the standard surgical fashion. A time-out was performed. The leg was draped. A midline and longitudinal incision over the patella and patellar tendon was drawn out. The left leg was then elevated and exsanguinated with an Esmarch bandage. An incision was made through the skin only. All superficial veins were cauterized. Dissection was carried down to the paratenon. Flaps were raised. The paratenon was exposed and the fracture site was exposed. The fracture involved midtransverse fracture of the patella. The fracture was fully displacement with extensive hematoma. The hematoma was drained, irrigated, and debrided. Both fracture edges were cleaned out with rongeur and curettes. There was some comminution, and the bone was osteoporotic in nature. The leg was placed flat on the table. Open reduction was performed under direct visualization and held provisionally with a reduction clamp. Fluoroscopic images on AP and lateral confirmed anatomic reduction of the patella with jain of the joint space. Next, 2 cannulated screws were prepared for primary reduction and fixation. Initially, 2 K-wires were placed starting at the inferior pole across the fracture and exiting at the superior pole of the patella. The wires were parallel in nature. Fluoroscopy again confirmed the well alignment of the K-wires and reduction. A drill was used to open the proximal cortex. After this, an appropriate-sized partially threaded compression screw was selected. Two screws were placed under direct visualization compressing the fracture site. The K-wires were removed. The fracture gap was closed. To reinforce the repair, a tension band construct was performed. An 18-gauge cerclage wire was placed through the cannulated screws, exited through the proximal pole, and tied back on itself in a eloisa-cross configuration over the patella reconstructing the tension band construct. The wires were tightened together simultaneously. This provided stability and reduction of the fracture site. The wire edges were cut short and a tamp was used to bury the edges of the wires. The knee was then taken through range of motion from 0 to 45 degrees with no gapping of the fracture site. The wound was then copiously irrigated again. A 0 Vicryl was used to repair the puncture holes at the quadriceps and the patellar tendon. After this, a subcutaneous suture was used to close the layer followed by 2-0 subcuticular sutures followed by matthieu for the skin. Tourniquet was deflated. A sterile dressing was applied consisting of Xeroform and Aquacel dressing. Sung bandage was placed. The patient was placed into a knee immobilizer. She was extubated and returned to recovery room. The patient will undergo a postoperative femoral block for pain control. Cornelio Spann MD RAINA
[2017-07-08] MEDS ORDERED: Ergocalciferol 50,000 Intl Units Cap PO SCH (10:00)
== END 2017-07-03 17:30 | disposition home or self-care (01) | DRG 234 ==
LOC: ED 11:42 → ERH 13:15 → 5RNO 14:53
PROVIDERS: ADMIT Internal Medicine; ATTEND Hospitalist
PROC: 0QSF04Z Reposition Left Patella with Internal Fixation Device, Open Approach (ICD-10-PCS; principal; 2017-07-02 17:00)
DX: S82.002A Unspecified fracture of left patella, initial encounter for closed fracture (principal); I10 Essential (primary) hypertension; M81.0 Age-related osteoporosis without current pathological fracture; W01.0XXA Fall on same level from slipping, tripping and stumbling without subsequent striking against object, initial encounter; Y93.01 Activity, walking, marching and hiking; Y92.480 Sidewalk as the place of occurrence of the external cause